=== PATIENT | female | born 1985 ===

== ENCOUNTER 2017-03-31 01:58 | Emergency (ER) | payer OTHER ==
[2017-03-31 02:06] VITALS: RESP 14; TEMP 97.8
[2017-03-31 02:12] VITALS: PULSE 70
--- NOTE | 2017-03-31 02:17 | C.PDOC ---
History Of Present Illness Patient seen tonite due to episode of faintin gspell while waiting in line for a concert. Episode lasted a few seconds. States it was hot and she was sweating a lot. Patient had beer and smoke marijuana. Chief Complaint (Nursing): Palpitations History Per: Patient, Family History/Exam Limitations: no limitations Onset/Duration Of Symptoms: Hrs Current Symptoms Are (Timing): Gone Number Of Syncopal Episodes: 1 Activity At Onset Of Symptoms: Standing, Other (hot environment.) Associated Symptoms Preceding Syncopal Episode: Lightheadedness Past Medical History Vital Signs: Last Vital Signs Temp 97.8 F 03/31/17 03:10 Pulse 70 03/31/17 03:10 Resp 14 03/31/17 03:10 BP 130/80 03/31/17 03:10 Pulse Ox 98 03/31/17 03:10 - Medical History PMH: HTN Surgical History: No Surg Hx Family History: States: Unknown Family Hx - Social History Hx Alcohol Use: Yes Hx Substance Use: No - Immunization History Hx Tetanus Toxoid Vaccination: Yes Hx Influenza Vaccination: No Hx Pneumococcal Vaccination: No Review Of Systems Constitutional: Positive for: Sweats (during the episode of fainting due to heat.). Negative for: Fever, Chills Cardiovascular: Positive for: Palpitations. Negative for: Chest Pain Respiratory: Negative for: Cough, Shortness of Breath, Hemoptysis Gastrointestinal: Negative for: Nausea, Vomiting, Abdominal Pain, Diarrhea Genitourinary: Negative for: Dysuria, Frequency Musculoskeletal: Negative for: Neck Pain, Shoulder Pain, Arm Pain Skin: Negative for: Rash Neurological: Negative for: Weakness, Numbness, Incoordination, Change in Speech , Confusion, Seizures, Altered Mental Status, Headache Psych: Negative for: Anxiety, Depression, Suicidal ideation Physical Exam - Physical Exam Appears: Well, No Acute Distress Skin: Normal Color, Warm, Dry Eye(s): bilateral: Normal Inspection, PERRL, EOMI Nose: Normal Oral Mucosa: Moist, No Dry Throat: Normal Neck: Normal Chest: Symmetrical, No Deformity, No Tenderness, No Ecchymosis, No Subcutaneous Emphysema Cardiovascular: Rhythm Regular, No Edema, No Friction Rub, No Murmur, No JVD Respiratory: Normal Breath Sounds Gastrointestinal/Abdominal: Normal Exam Back: Normal Inspection Extremity: Normal ROM Extremity: Bilateral: Atraumatic, Normal ROM, Other (no focal deficit) ED Course And Treatment ECG: Interpreted By Me, Viewed By Me ECG Rhythm: Sinus Rhythm ECG Interpretation: Normal Interpretation Of ECG: NSR, normal tracings Rate From EC O2 Sat by Pulse Oximetry: 100 Progress Note: Patient refused work up. signing AMA. Reevaluation Time: 02:59 (Patient is stable) Disposition - Disposition Disposition: AGAINST MEDICAL ADVICE
[2017-03-31] MEDS ORDERED: Sodium Chloride 0.9% 500 ML IV ONE (02:23)
[2017-03-31] MEDS ORDERED: Sodium Chloride 0.9% 1,000 ML IV ONE (02:23)
[2017-03-31 03:43] VITALS: BP 130/80
[2017-03-31 04:42] VITALS: O2SAT 100
== END 2017-03-31 03:20 | disposition left against medical advice (07) ==
LOC: C.ER 01:58
DX: R55 Syncope and collapse (principal)